=== PATIENT | female | born 2000 | race Caucasian/White ===

== ENCOUNTER 2018-04-16 12:23 | Emergency (ER) | payer SELFPAY ==
[2018-04-16 13:02] VITALS: BP 101/72
--- NOTE | 2018-04-16 13:19 | UC ---
UC General HPI - HPI Summary HPI Summary: 17 year old female presents for 4 day history of nasal congestion and sore throat. She also reports that 4 days ago she inserted 2 makeup sponges into her vagina after she ran out of tampons and states she has been unable to remove the sponges. Associated with a foul-smelling discharge. Denies fever, chills, ear pain, sinus pressure, dysphagia, cough, shortness of breath, chest pain, palpitations, weakness, dizziness, abdominal pain, nausea, vomiting, dysuria, frequency, or urgency. - History of Current Complaint Chief Complaint: UCRespiratory Stated Complaint: RUNNY NOSE,SORE THROAT,FEVER Time Seen by Provider: 04/16/18 13:00 Hx Obtained From: Patient Hx Last Menstrual Period: 04/12/18 Pain Intensity: 5 - Allergy/Home Medications Allergies/Adverse Reactions: Allergies Allergy/AdvReac Type Severity Reaction Status Date / Time No Known Allergies Allergy Verified 04/16/18 12:58 Home Medications: Home Medications Acetaminophen [Acetaminophen Extra Strength] 500 mg PO Q6H PRN 04/16/18 [ History Confirmed 04/16/18] PMH/Surg Hx/FS Hx/Imm Hx Previously Healthy: Yes - Denies significant PMH - Surgical History Surgical History: Yes Surgery Procedure, Year, and Place: Tubes in ears. T& A 2010 - Family History Known Family History: Positive: None - Social History Occupation: Unemployed Lives: With Family Alcohol Use: Rare Substance Use Type: None Smoking Status (MU): Heavy Every Day Tobacco Smoker Type: Cigarettes Amount Used/How Often: 1 ppd - Immunization History Vaccination Up to Date: Yes Review of Systems All Other Systems Reviewed And Are Negative: Yes Constitutional: Negative: Fever, Chills Eyes: Negative: Drainage, Eye Redness ENT: Positive: Sore Throat, Nasal Discharge, Sinus Congestion. Negative: Ear Ache, Sinus Pain/Tenderness Respiratory: Negative: Shortness Of Breath, Cough Cardiovascular: Negative: Palpitations, Chest Pain Gastrointestinal: Negative: Abdominal Pain, Vomiting, Diarrhea, Nausea Genitourinary: Positive: Vaginal/Penile Discharge. Negative: Dysuria, Hematuria , Frequency Is Patient Immunocompromised?: No Physical Exam Triage Information Reviewed: Yes Appearance: Well-Appearing, No Pain Distress, Obese Vital Signs: Initial Vital Signs Temp 97.6 F 04/16/18 12:57 Pulse 77 04/16/18 12:57 Resp 18 04/16/18 12:57 BP 101/72 04/16/18 12:57 Pulse Ox 98 04/16/18 12:57 Vital Signs Reviewed: Yes Eyes: Positive: Conjunctiva Clear. Negative: Discharge ENT: Positive: Pharyngeal erythema - Mild, Nasal congestion, Nasal drainage, TMs normal, Uvula midline. Negative: Tonsillar swelling, Tonsillar exudate, Sinus tenderness Neck: Positive: Supple, Nontender, No Lymphadenopathy Respiratory: Positive: Lungs clear, Normal breath sounds, No respiratory distress Cardiovascular: Positive: RRR, No Murmur Abdomen Description: Positive: Nontender, No Organomegaly, Soft. Negative: CVA Tenderness (R), CVA Tenderness (L), Distended, Guarding Pelvic Exam: Positive: External Exam Normal, No Cerv. Motion Tender, Discharge - Foul-smelling vaginal discharge, Other - 2 large wedge shaped sponges were removed without complication using sponge forceps.. Negative: Active Bleeding, Lesions, Mass, Tender Adnexa, Tender Uterus Neurological: Positive: Alert Skin Exam: Normal Diagnostics - Laboratory Diagnostic Studies Completed/Ordered: Rapid strep negative Course/Dx - Course Course Of Treatment: 17 year old female presents for 4 day history of nasal congestion and sore throat. She also reports that 4 days ago she inserted 2 makeup sponges into her vagina after she ran out of tampons and states she has been unable to remove the sponges. Associated with a foul-smelling discharge. Denies fever, chills, ear pain, sinus pressure, dysphagia, cough, shortness of breath, chest pain, palpitations, weakness, dizziness, abdominal pain, nausea, vomiting, dysuria, frequency, or urgency. Afebrile. VSS. Exam revealed mild nasal congestion and pharyngeal erythema without tonsilar swelling or exudate. Rapid strep negative. The vaginal foreign bodies were removed without complication. Abdomen and pelvic exams were unremarkable except for the foul- smelling vaginal discharge. Recommending symptomatic treatment for viral URI. The discharge should clear with removal of the foreign body. She is to follow up with her PCP in 7 days if symptoms persist. Warning symptoms were reviewed with patient. Verbalizes understanding and agrees with POC. - Diagnoses Provider Diagnosis: Viral URI, Retained vaginal foreign body Discharge - Sign-Out/Discharge Documenting (check all that apply): Patient Departure All imaging exams completed and their final reports reviewed: No Studies - Discharge Plan Condition: Stable Disposition: HOME Patient Education Materials: Upper Respiratory Infection (ED), Vaginal Foreign Body (ED) Referrals: Nayla Roberson MD [Primary Care Provider] - Additional Instructions: Your history and exam are consistent with a viral upper respiratory infection. Viral infections do not respond to antibiotics and are limited to the treatment of symptoms. Viral infections typically run their course in 7-10 days. Drink plenty of fluids to avoid dehydration especially if you are running any fever. Use a saline rinse kit such as Neti Pot or NeilMed at least twice a day to help thin secretions and promote drainage of the sinuses. Use over the counter fluticasone (Flonase) nasal spray 2 sprays each nostril once daily. Take over the counter acetaminophen (Tylenol) or ibuprofen (Advil, Motrin) according to directions as needed for pain or fever. Use salt water gargles several times a day if you have a sore throat. You may also use Chloraseptic spray or Cepacol lonzenges according to directions which contain a numbing medication and can provide some temporary relief from your sore throat. Only use tampons or pads according to directions. Follow up with your primary care provider in 7 days if symptoms persist. Seek immediate medical attention in the emergency room if you have fever greater than 100.5 F despite taking acetaminophen or ibuprofen, have chest pain , difficulty breathing, are unable to swallow, have increased vaginal discharge after removal of the foreign body, severe abdominal pain, persistent vomiting, pain with sexual intercourse, difficulty urinating, or have any worsening of symptoms. - Billing Disposition and Condition Condition: STABLE Disposition: Home
== END 2018-04-16 13:57 | disposition home or self-care (01) ==
LOC: UCCORT 12:23
DX: X58.XXXA Exposure to other specified factors, initial encounter (principal); Y92.9 Unspecified place or not applicable; T19.2XXA Foreign body in vulva and vagina, initial encounter; F17.210 Nicotine dependence, cigarettes, uncomplicated; J06.9 Acute upper respiratory infection, unspecified
CPT/HCPCS: 87651; 99212; G0463